=== PATIENT | male | born 1955 | race Caucasian/White ===

== ENCOUNTER → 2021-01-29 13:10 | Outpatient (CLI) | payer OTHER, MEDICARE, SELFPAY ==
[2021-01-29 14:33] LABS: COVID19 -Nasal RAPID Negative (Negative)
== END ==
PROVIDERS: PCP Physician Assistant Medical; Visit Provider Specialist
DX: Z20.822 Contact with and (suspected) exposure to COVID-19 (principal)
CPT/HCPCS: 87635; C9803

== ENCOUNTER 2021-01-30 10:18 | Day surgery (SDC) | payer OTHER, MEDICARE, SELFPAY ==
[2021-01-30] VITALS (7 sets, daily range): BP systolic 116–143; BP diastolic 71–81; PULSE 69–82; RESP 12–18; TEMP 36.2–37.1; O2SAT 90–98; BMI 28.3
--- NOTE | 2021-01-30 | PATH_ITS ---
[facility] Accession Number: [id number] . 01 Material submitted: . esophagus, E-G Junction - GE JUNCTION . 01 Clinical history: . SDC . 02 Diagnosis: Gastroesophageal Junction, Biopsy: Squamocolumnar junctional mucosa with no diagnostic abnormality. Negative for intestinal metaplasia. Negative for dysplasia and malignancy. . MRV 02/04/2021 1447 Local . 02 Electronically signed: . Bren Patricia MD, Pathologist NPI- [id number] . 01 Gross description: . The specimen is received in formalin, labeled GE junction and consists of four chin fragments of soft tissue measuring 0.6 x 0.6 x 0.2 cm in aggregate. The specimen is entirely submitted in cassette A1. (EA:[id number]) /MRV 01/31/2021 1415 Local . 02 Pathologist provided ICD-10: R13.10 . 02 CPT . 274987 Performed at: 01 [facility] [address], [place], [place] [id number] MD Dick Loving MD Phone: [phone] Performed at: 02 [facility] [address] [place], [place] [id number] MD Bren Patricia MD Phone: [phone]
[2021-01-30] MEDS: LACTATED RINGERS 1,000 ML 42 ML IV ×2 (11:08→13:39)
--- NOTE | 2021-01-30 11:32 | PM.PREOP ---
Pre-operative Note COVID-19 COVID-19 status: Negative Result date/Date tested (Pos, Neg/Pending): 01/29/21 Interval Note History & Physical reviewed/Exam performed by Physician: Yes Changes to H&P: No H&P completed within 30 days and has changed as indicated here:: Reviewed the risks once again of the operation. All questions were answered. Patient does wish to proceed and would like his hernia repair done with mesh if appropriate.
[2021-01-30] MEDS: TETRACAINE/BENZOCAINE/BUTAMBEN (CETACAINE) BOTTLE 1 SPRAY TOP (12:15)
[2021-01-30] MEDS: CEFAZOLIN 2 GM/100 ML FROZ.PIGGY IV (12:25)
--- NOTE | 2021-01-30 12:39 | SUR.OPER ---
Supine on padded OR bed, head on pillow, arms secured on padded arm boards at <90 degrees abduction, legs uncrossed, safety belt at thigh, tape over blanket over lower legs.
[2021-01-30] MEDS: BUPIVACAINE 0.5% (PF) VIAL 30 ML INJ (12:47)
--- NOTE | 2021-01-30 14:07 | PM.OP.1 ---
Operative Date/Time/Diagnoses Date of procedure: 01/30/21 Time of procedure: 14:07 Pre-op diagnosis: Persistent gastroesophageal reflux disease with new symptomatology including dysphagia. Reducible left inguinal hernia Post-op diagnosis: same (Possible Camarillo's esophagus. Indirect hernia.) Procedure & Clinicians Procedure: EGD with cold biopsy. Left inguinal hernia repair with plug and patch technique. Same procedure as scheduled: Yes Indications: Symptomatic left inguinal hernia. Dysphagia in the face of chronic reflux disease. Increasing symptomatology despite medication. Surgeon: Daron Pace Click Yes if Unassisted: Yes Anesthesia Type: General and MAC +/- Operative Notes Findings: Possible Camarillo's esophagus. Biopsies taken at the GE junction. Indirect hernia Closure Type: primary Specimen(s): other (GE junction biopsies) Prosthetic devices, grafts, tissues, transplants, or devices: Medium plug and patch Estimated Blood Loss (mL): 5 Blood products transfused: none Procedure in detail: The patient had topical anesthetic applied to oropharynx. He was placed in the supine position and underwent IV monitored anesthesia care directed by the anesthesiologist.. A bite block was inserted and the scope was advanced through it into the esophagus. The esophagus was unremarkable until I reach the GE junction where there were tongues red tissue extending above the GE junction. This was located about 36 cm from the incisors.. The stomach insufflated well. There were no lesions seen in the body, antrum or at the incisura. The pyloric channel was narrowed but patent. The duodenum was unremarkable to the 4th part. The scope was brought back into the stomach and retroflexed. The proximal stomach was normal except for the appearance of a small hiatal hernia. There was some small gastric fundic polyps.. The scope was straightened and brought out through the esophagus again. Biopsies were taken at the GE junction. No other lesions were seen. There was no significant narrowing of the esophagus. The scope was removed and the patient tolerated the procedure well. Attention was then turned to the left groin. The patient was placed supine on the operating room table and underwent general LMA anesthesia. He was prepped and draped in the usual fashion. A transverse incision was made overlying the left internal ring and carried down to the level of the external oblique. The external oblique was opened parallel with its fibers through the external ring. The cord structures were elevated. The cremaster was opened proximally and search made for an indirect sac. The patient had a large lipoma of the cord which was from surrounding structures. These fatty pieces of tissue would like give the level deep epigastric vessels using 3-0 Vicryl. The patient was found to have an indirect sac which was from surrounding structures. It was opened and found to contain small amount of fat adhesed near the bottom of the sac. This was teased off the sac and the sac was suture ligated with 2-0 silk suture. The stump was allowed to retract. The distal portion was removed. The patient had a medium plug placed in the defect created by the hernia sac and it was tacked into place with interrupted Ethibond suture. The cremaster was closed over it with a [id number] 3-0 Vicryl.. The floor was examined and was found to be weakened. A patch was placed across the floor and tacked at the pubic tubercle, the posterior lamella of the anterior rectus sheath, the ilioinguinal ligament, and superior lateral to the cord. The opening was modified as necessary to prevent tight constriction of the cord. Sutures of 0 Ethibond were used to secure the mesh. The external oblique was closed with a running 3 0 Vicryl. The subcu was closed with interrupted 3 0 Vicryl. The skin was closed with a running 4 0 Vicryl subcuticular stitch and Steri-Strips. Dressing was applied, the patient was awakened, and the patient was taken to the recovery area in good condition. Local anesthetic was infiltrated prior to applying the Steri-Strips. Complications: none Post-operative Condition: stable Disposition: PACU
== END 2021-01-30 14:40 | disposition home or self-care (01) ==
PROVIDERS: PCP Physician Assistant Medical; Referring Provider Physician Assistant Medical; Visit Provider Specialist
PROC: (CPT 49505; principal; 2021-01-30 11:45)
PROC: 0DJ08ZZ Inspection of Upper Intestinal Tract, Via Natural or Artificial Opening Endoscopic (ICD-10-PCS; CPT 43235; 2021-01-30 11:45)
DX: K40.90 Unilateral inguinal hernia, without obstruction or gangrene, not specified as recurrent (principal); R13.10 Dysphagia, unspecified; I10 Essential (primary) hypertension; G47.33 Obstructive sleep apnea (adult) (pediatric); K21.9 Gastro-esophageal reflux disease without esophagitis; D17.6 Benign lipomatous neoplasm of spermatic cord
CPT/HCPCS: 49505; 43239; 82962; C1781; J0690; J1100; J1885; J2250; J2405; J2704; J3010

== ENCOUNTER → 2021-11-07 13:28 | Outpatient (CLI) | payer OTHER, MEDICARE, SELFPAY ==
--- NOTE | 2021-11-07 13:30 | DI.ECHO.S_ITS ---
[facility]---------+ [facility] +---------+ : : [address] : : : : [id number] : : : : Phone: [phone]+ Echocardiogram Report + + :Name: JESSICA GARZA Study Date: 11/07/2021 Height: 68 in : :[facility] ReadingLocation: Weight: 175 lb : : Gender: Male BSA: 1.9 m2 : :: 1955 Age: 65 yrs BP: 128/75 mmHg: :Reason For Study: Murmur : :Ordering Physician: : :TUSHAR Performed By: Enrique Thomas : :Referring: OLEKSANDR VILLEGAS : + + Interpretation Summary The left ventricle is normal in size and wall thickness. The ejection fraction is estimated to be 60-65%. The right ventricle is normal in size and function. No significant valvular pathology seen. The IVC is of normal diameter and collapses greater than 50% with a sniff. This suggests a low right atrial pressure of 3 mm Hg. Procedure: A two-dimensional transthoracic echocardiogram with color flow and Doppler was performed. The study quality was technically adequate. Comparison is made with the echocardiogram of 06/27/2016. The patient was in normal sinus rhythm during the exam. Left Ventricle: The left ventricle is normal in size and wall thickness. There is no thrombus. A false chord is noted (normal variant). The ejection fraction is estimated to be 60-65%. There has been no significant change since the previous exam. There are no focal wall motion abnormalities. Diastolic parameters suggest a relaxation abnormality of the left ventricle, consistent with probable normal filling pressures. Right Ventricle: The right ventricle is normal in size and function. Atria: Both atria are normal in size. The left atrium has mildly decreased in size since the prior echo exam. A prominent eustachian valve is noted. There is no Doppler evidence for an interatrial shunt. Mitral Valve: There is systolic anterior motion of the chordal apparatus. There is mild mitral annular calcification. There is trace mitral regurgitation. Aortic Valve: The aortic valve is trileaflet. The aortic valve opens well. There is no aortic valve stenosis. No aortic regurgitation is present. Tricuspid Valve: The tricuspid valve is normal. There is trace tricuspid regurgitation. The right ventricular systolic pressure is estimated to be at least 18 mmHg based on an estimated right atrial pressure of 3 mm Hg. Pulmonic Valve: The pulmonic valve leaflets are thin and pliable; valve motion is normal. There is a trace or physiologic amount of pulmonic regurgitation. Great Vessels: The aortic root is normal size. The ascending aorta is normal in size. The aortic arch is normal in size. The IVC is of normal diameter and collapses greater than 50% with a sniff. This suggests a low right atrial pressure of 3 mm Hg. Pericardium/ Pleura There is no pericardial effusion. There is an anterior echo-free space consistent with a fat pad. There is no pleural effusion. MMode/2D Measurements & Calculations LVIDd: 4.5 cm LVOT diam: 1.9 cm LVIDs: 3.0 cm Ao root diam: 3.2 cm FS: 33.3 % asc Aorta Diam: 3.5 cm IVSd: 0.80 cm Ao Arch Diam (Prox Trans): 3.0 cm LVPWd: 0.80 cm LV zuleta. diameter/BSA (cm/m^2): 2.3 LV sys. diameter/BSA (cm/m^2): 1.6 LA A2 area: 18.0 cm2 RA long axis: 5.0 cm LA A4 area: 14.7 cm2 IVC diam: 1.9 cm LA length (vol): 5.1 cm LA vol: 44.2 ml LA vol index: 22.9 ml/m2 LVLs ap4: 6.2 cm LVLd ap2: 6.9 cm LVLs ap2: 5.5 cm TAPSE_phl: 3.0 cm Doppler Measurements & Calculations Ao V2 max: 146.0 cm/sec LVOT Max Lonnie: 87.5 cm/sec Ao V2 mean: 101.0 cm/sec LV V1 max P.1 mmHg Ao max P.0 mmHg LV V1 VTI: 18.9 cm Ao mean P.0 mmHg MARANDA(I,D): 2.0 cm2 Ao V2 VTI: 27.3 cm MARANDA(V,D): 1.7 cm2 sev ratio: 0.69 MARANDA indexed to BSA (cm^2/m^2): 1.0 MV E max lonnie: 61.8 cm/sec TR max lonnie: 192.7 cm/sec MV A max lonnie: 73.3 cm/sec TR max P.9 mmHg MV E/A: 0.84 PA V2 max: 85.8 cm/sec Med Peak E' Lonnie: 5.9 cm/sec PA V2 mean: 64.1 cm/sec E/E' med: 10.5 PA mean P.0 mmHg Lat Peak E' Lonnie: 8.6 cm/sec PA pr(Accel): 25.0 mmHg E/E' lat: 7.2 E/e' average: 8.8 MV dec time: 0.23 sec SV(LVOT): 53.6 ml AV VR_phl: 0.60 MARANDA(VTI)/BSA_phl: 1.0 MV P1/2t-pr_phl: 68.0 msec Reading Physician:04:46 PM
== END ==
PROVIDERS: PCP Physician Assistant Medical; Referring Provider Internal Medicine Cardiovascular Disease; Visit Provider Internal Medicine Cardiovascular Disease
DX: R01.1 Cardiac murmur, unspecified (principal)
CPT/HCPCS: 93306

== ENCOUNTER → 2021-12-18 11:18 | Outpatient (CLI) | payer OTHER, MEDICARE, SELFPAY ==
[2021-12-18 13:25] LABS: COVID19 -Nasal RAPID Negative (Negative)
== END ==
PROVIDERS: PCP Physician Assistant Medical; Visit Provider Family Medicine Sleep Medicine
DX: Z20.822 Contact with and (suspected) exposure to COVID-19 (principal)
CPT/HCPCS: 87635; C9803

== ENCOUNTER → 2021-12-20 14:47 | Outpatient (CLI) | payer OTHER, MEDICARE, SELFPAY ==
--- NOTE | 2021-12-20 16:03 | PM.TREADMILL ---
Cardiac Stress Test Report Referral & Results Date Patient Seen: 12/20/21 Time Patient Seen: 16:04 Requesting provider: Dionne Kirk Indication: atypical chest pain Rest ECG: Sinnus rhythm with nonspecific ST changes Procedure Note: Standard sunny protocol, 9:07, 9.9 MeTS Good exercise capacity, EDY -23% Normal hemodynamic response to exercise No chest pain or anginal symptoms 1-1.[address] depression in II, III, aVF, V4-V6 Rare PVC, couplets Impression: Equivocal exercise stress test Please note: Actual ECG tracings can be found in the PACS system.
--- NOTE | 2021-12-20 17:46 | DI.NM.S_ITS ---
DATE OF SERVICE: 12/20/2021 PROCEDURE PERFORMED: Exercise treadmill stress test without imaging. ORDERING PROVIDER: Dr. Dionne Kirk. INDICATIONS: The patient is a 65-year-old male with hypertension, hyperlipidemia, and atrial arrhythmias with recent chest pain. FINDINGS: 1. The patient was able to exercise for 9 minutes, 7 seconds on a standard Juan protocol suggesting very good exercise capacity with an EDY of -23%, achieving 9.9 METs. 2. He had a normal heart rate and blood pressure response to exercise, achieving a maximum heart rate of 155 BPM (102% of his predicted maximum). 3. He had no chest discomfort or other anginal symptoms with stress. 4. His resting ECG shows sinus rhythm with atrial bigeminy and T-wave inversions in lead III, but normal ST segments. With stress, he develops nonspecific upsloping ST depression that becomes somewhat flatter at peak exercise, but remains slightly upsloping and resolves completely within 1 minute of exercise and thus is nonspecific for ischemia. There were no arrhythmias with stress. IMPRESSION: 1. Normal exercise treadmill stress test for ischemia. 2. Very good exercise capacity without angina or arrhythmias with exercise. At rest, he had sinus rhythm with PACs in a bigeminal pattern. Artis Clements - JOSE/nettie/marshall doc#: [id number]/job#: [id number] dd: 12/20/2021 17:04:00 dt: 12/20/2021 17:32:00 DICTATING MD/COPIES TO: Cole Mcfadden MD; Dionne Kirk MD COPIES JOHN: ONEIDA
== END ==
PROVIDERS: PCP Physician Assistant Medical; Referring Provider Internal Medicine Cardiovascular Disease; Visit Provider Internal Medicine Cardiovascular Disease
DX: R07.89 Other chest pain (principal); I49.9 Cardiac arrhythmia, unspecified; I10 Essential (primary) hypertension; E78.5 Hyperlipidemia, unspecified
CPT/HCPCS: 93017